=== PATIENT | female | born 1985 ===

== ENCOUNTER 2016-04-27 20:45 | Outpatient (CLI) | payer MEDICAID ==
[~2016-04-27 20:45] MED LIST: NORCO 5-325 TA1 EACH PO
[2016-05-05] MEDS ORDERED: TYLENOL #3 DPS1 TAB PO (11:58)
[2016-05-05] MEDS ORDERED: PRENATAL VIT1 TAB PO (11:58)
[2016-05-05] MEDS ORDERED: COLACE-DPS100 MG PO (11:59)
[2016-05-05] MEDS ORDERED: MOTRIN-DPS800 MG PO (11:59)
[2016-05-05] MEDS ORDERED: NIPPLECREAM TP (11:59)
== END 2016-04-28 00:55 | disposition home or self-care (01) ==
LOC: 2LDRP 20:45 → BC 20:45
DX: O47.1 False labor at or after 37 completed weeks of gestation (principal); Z3A.38 38 weeks gestation of pregnancy